=== PATIENT | male | born 1990 | race Caucasian/White ===

== ENCOUNTER 2016-09-12 06:30 | Emergency (ER) | payer BC ==
[2016-09-12 06:32] VITALS: BMI 33.3
[2016-09-12 06:47] VITALS: RESP 18; O2SAT 100
[2016-09-12 07:49] LABS: ADD MANUAL DIFF? NO
[2016-09-12 07:52] LABS: BASO # 0.02 K/mm3 (0.0-2.0); BASO % 0.4 % (0.0-3.0); EOS # 0.1 (0.0-0.7); EOS % 1.1 % (1.5-5.0); GRAN # 2.39 (1.4-6.5); GRAN % 45.6 % (50.0-68.0); HEMATOCRIT 45.2 % (42.0-52.0); LYMPH # 2.3 (1.2-3.4); LYMPH % 44.7 % (22.0-35.0); MEAN CELL VOLUME 89.3 fL (80.0-105.0); MEAN CORPUSCULAR HEMOGLOBIN 30.6 pg (25.0-35.0); MEAN CORPUSCULAR HGB CONC 34.3 g/dl (31.0-37.0); MEAN PLATELET VOLUME 11.2 fl (7.0-11.0); MONO # 0.4 (0.1-0.6); MONO % 8.2 % (1.0-6.0); PLATELET COUNT 248 10^3/uL (120.0-450.0); RED CELL DISTRIBUTION WIDTH 13.3 % (11.5-14.5); WHITE BLOOD COUNT 5.2 10^3/ul (4.5-11.0)
[2016-09-12 08:02] LABS: INR 1.05 (0.93-1.08)
[2016-09-12 08:03] LABS: ALB/GLOB RATIO 1.2 (1.1-1.8); ALKALINE PHOSPHATASE 64 U/L (38-133); ALT/SGPT 68 U/L (7-56); AST/SGOT 52 U/L (15-59); BILIRUBIN,TOTAL 0.7 mg/dL (0.2-1.3); BLOOD UREA NITROGEN 19 mg/dL (7-21); CALCIUM 9.7 mg/dL (8.4-10.5); CARBON DIOXIDE 31 mmol/L (21-33); CHLORIDE 100 mmol/L (98-107); GFR AFRICAN-AMERICAN > 60; GLUCOSE,RANDOM 88 mg/dL (70-110); POTASSIUM 4.5 mmol/L (3.6-5.0); SODIUM 142 mmol/L (132-148); TOTAL PROTEIN 8.3 g/dL (5.8-8.3)
[2016-09-12 08:15] LABS: TROPONIN I < 0.01 ng/mL
--- NOTE | 2016-09-12 08:17 | ED PDOC ---
Arrival/HPI - General Chief Complaint: Shortness Of Breath Time Seen by Provider: 09/12/16 07:04 Historian: Patient - History of Present Illness Narrative History of Present Illness (Text): 09/12/16 08:12 Gabo Chavez is a 26 year old male, with no significant past medical history , presents to the emergency department complaining of 3 day duration of intermittent episodes of shortness of breath. No relieving or exacerbating factors. States that he workouts at gym, and states he does not experience any chest pain or shortness of breath while working out and exertion. Patient does not take any medications or steroids, but takes a supplement from [facility] prior to workout. Patient denies any fever, chills, diaphoresis, extremity weakness/ numbness, nausea, vomiting, diarrhea, urinary symptoms, or any other complaints at this time. Time/Duration: < week (3 days ) Symptom Onset: Gradual Symptom Course: Intermittent Severity Level: Mild Activities at Onset: Light Past Medical History - Provider Review Nursing Documentation Reviewed: Yes - Infectious Disease Hx of Infectious Diseases: None - Cardiac Hx Cardiac Disorders: No - Pulmonary Hx Respiratory Disorders: No - Neurological Hx Neurological Disorder: Yes Hx Migraine: Yes - HEENT Hx HEENT Disorder: No - Psychiatric Hx Substance Use: No - Anesthesia Hx Anesthesia: No Family/Social History - Physician Review Nursing Documentation Reviewed: Yes Family/Social History: No Known Family HX Smoking Status: Never Smoked Hx Alcohol Use: Yes Hx Substance Use: No Allergies/Home Meds Allergies/Adverse Reactions: Allergies No Known Allergies Allergy (Verified 11/24/15 08:22) Home Medications: Home Meds Medication Instructions Recorded Confirmed No Known Home Med 11/24/15 11/24/15 Physical Exam - Physical Exam Narrative Physical Exam (Text): - Review of Systems Constitutional: Normal. absent: Fatigue, Weight Change, Fevers Eyes: Normal ENT: Normal Respiratory: Present: intermittent SOB absent:Cough, Sputum Cardiovascular: Normal absent: Chest pain, Palpitations, Syncope Gastrointestinal: Normal absent: Abdominal pain, Diarrhea, Nausea, Vomiting Genitourinary: Normal. absent: Dysuria, Frequency, Hematuria Musculoskeletal: Normal. absent: Arthralgias, Back Pain, Neck Pain Skin: Normal Neurological: Normal absent: Focal Weakness Endocrine: Normal Hemo/Lymphatic: Normal Psychiatric: Normal - Physical exam Patient appears age appropriate, speaking full sentences without difficulty - Systems Exam Head: Present: Atraumatic, Normocephalic Pupils: Present: PERRL Extraocular Muscles: Present: EOMI Conjunctiva: Present: Normal Mouth: Present: Moist Mucous Membranes Neck: Present: Normal Range of Motion. No: MIDLINE TENDERNESS, Paraspinal Tenderness Respiratory/Chest: Present: Clear to Auscultation, Good Air Exchange. No: Respiratory Distress, Accessory Muscle Use, Tachypneic Cardiovascular: Present: Regular Rate and Rhythm, Normal S1, S2, Peripheral Pulses Present. No: Murmurs Abdomen: Present: Normal Bowel Sounds, No: Tenderness, Peritoneal Signs, Rebound, Guarding, Distention Back: Present: Normal Inspection. No: Midline Tenderness, Paraspinal Tenderness Upper Extremity: Present: Normal Inspection. No: Cyanosis, Edema Lower Extremity: Present: Normal Inspection. No: Edema Neurological: Present: GCS=15, Speech Normal, cranial nerves II through XII fully intact with no cerebellar abnormality, neuro-sensory fully intact. No focal neurological deficits. Skin: Present: Warm, Dry, Normal Color. No: Rashes Lymphatic: Present: OX3, NI, NC Psychiatric: Present: Alert, Oriented x 3, Normal Insight, Normal Concentration Vital Signs Reviewed: Yes Vital Signs Temp Pulse Resp BP Pulse Ox 09/12/16 07:38 58 L 18 148/79 100 09/12/16 07:14 61 09/12/16 06:43 98.1 F 69 18 141/90 100 Temperature: Afebrile Blood Pressure: Normal Pulse: Regular Respiratory Rate: Normal Appearance: Positive for: Well-Appearing, Non-Toxic, Comfortable Pain Distress: None Mental Status: Positive for: Alert and Oriented X 3 Medical Decision Making ED Course and Treatment: 09/12/16 08:19 Impression: A 26 year old male who presents to the emergency department complaining of intermittent episodes of shortness of breath. Patient states that symptoms are not worsened while working out or exertion. Currently asymptomatic. Physical exam unremarkable. Diagnoses of PE considered, patient is perc negative Plan: -- Labs, cardiac enzymes -- Chest X-ray -- Reassess and disposition Prior Visits: Notes and results from previous visits were reviewed. On 12/04/2015 patient presented to the emergency department complaining of shortness of breath and headache. Discharged home, had normal troponin, normal BNP, Normal Chest X-ray and CT chest. Progress Notes: EKG interpreted by me: SUHA @ 61 bpm. Normal interval. J-point elevations. T wave inversions in Lead III. No Q waves. No changes since previous on 12/04/2015. 09/12/16 08:36 pt's HEART score low. 1 set of cardiac enzymes and an EKG ordered I had a long discussion with patient that our initial evaluation has not shown evidence of a heart attack. Patient verbalized understanding that even if these tests are normal, symptoms may still be a warning sign of a future heart attack and it is very important for patient to arrange outpatient cardiology follow up Patient was not agreeable for a 3 hour troponin and further observation in the emergency department. He states that he would like to be discharged home for outpatient follow-up with a hematologist Pt states he understands to return to the ER right away for new or worsening symptoms or for inability to f/u with PMD or specialist as instructed. Patient states that he fully agrees with and understands discharge instructions. States that he agrees with the plan and disposition. Verbalized and repeated discharge instructions and plan. I have given the patient opportunity to ask any additional questions. - Lab Interpretations Lab Results: 09/12/16 07:45 09/12/16 07:45 Lab Results 09/12/16 07:45: WBC 5.2, RBC 5.06, Hgb 15.5, Hct 45.2, MCV 89.3, MCH 30.6, MCHC 34.3, RDW 13.3, Plt Count 248, MPV 11.2 H, Gran % 45.6 L, Lymph % (Auto) 44.7 H , [place] % (Auto) 8.2 H, Eos % (Auto) 1.1 L, Baso % (Auto) 0.4, Gran # 2.39, Lymph # 2.3, [place] # 0.4, Eos # 0.1, Baso # 0.02, PT 11.3, INR 1.05, APTT 28.0, Sodium 142, Potassium 4.5, Chloride 100, Carbon Dioxide 31, Anion Gap 16, BUN 19 , Creatinine 1.2, Est GFR ( Amer) > 60, Est GFR (Non-Af Amer) > 60, Random Glucose 88, Calcium 9.7, Total Bilirubin 0.7, AST 52, ALT 68 H, Alkaline Phosphatase 64, Lactate Dehydrogenase 628, Total Creatine Kinase 838 H, CK-MB ( CK-2) 2.7, CK-MB (CK-2) % Cancelled, Troponin I < 0.01, Total Protein 8.3, Albumin 4.5, Globulin 3.8, Albumin/Globulin Ratio 1.2 - RAD Interpretation Radiology Orders: 09/12/16 07:31 CHEST TWO VIEWS (PA/LAT) [RAD] Stat - Scribe Statement The provider has reviewed the documentation as recorded by the Noraibe Jaclyn Milligan Provider Attestation: All medical record entries made by the Scribe were at my direction and personally dictated by me. I have reviewed the chart and agree that the record accurately reflects my personal performance of the history, physical exam, medical decision making, and the department course for this patient. I have also personally directed, reviewed, and agree with the discharge instructions and disposition. Disposition/Present on Arrival - Present on Arrival Any Indicators Present on Arrival: No History of DVT/PE: No History of Uncontrolled Diabetes: No Urinary Catheter: No History of Decub. Ulcer: No History Surgical Site Infection Following: None - Disposition Have Diagnosis and Disposition been Completed?: Yes Diagnosis: Shortness of breath Disposition: HOME/ ROUTINE Disposition Time: 08:40 Patient Plan: Discharge Condition: GOOD Discharge Instructions (ExitCare): Dyspnea (ED) Additional Instructions: PLEASE RETURN TO THE EMERGENCY DEPARTMENT FOR NEW OR WORSENING SYMPTOMS. RETURN RIGHT AWAY IF YOU CANNOT FOLLOW UP WITH YOUR PRIMARY CARE DOCTOR, CLINIC, OR SPECIALIST IN 1-2 DAYS. Referrals: Tabatha Marroquin DO [Primary Care Provider] - Follow up with primary Jun Yoo MD [Staff Provider] - Follow up with primary Servando Hamilton MD [Staff Provider] - Follow up with primary Servando Moore MD [Medical Doctor] - Follow up with primary Timmy Tomas MD [Staff Provider] - Follow up with primary Forms: WORK NOTE
--- NOTE | 2016-09-12 08:34 | RAD ---
HISTORY: cough COMPARISON: No prior. TECHNIQUE: Chest PA and lateral FINDINGS: LUNGS: No active pulmonary disease. PLEURA: No significant pleural effusion identified. No pneumothorax apparent. CARDIOVASCULAR: Normal. OSSEOUS STRUCTURES: No significant abnormalities. VISUALIZED UPPER ABDOMEN: Normal. OTHER FINDINGS: None. IMPRESSION: No active disease.
[2016-09-12 08:57] VITALS: BP 142/70; PULSE 72; TEMP 98.6
--- NOTE | 2016-09-12 13:24 | CARD ---
APPROVED REPORT EKG Measurement Heart [id number] <Conclusion> Normal sinus rhythm ST elevation, probably due to early repolarization Borderline ECG
== END 2016-09-12 08:57 | disposition home or self-care (01) ==
LOC: ED 06:30
DX: R06.02 Shortness of breath (principal)